=== PATIENT | female | born 1960 | race African-American/Black ===

== ENCOUNTER 2017-06-23 19:51 | Emergency (ER) | payer OTHER ==
[2017-06-23 20:08] VITALS: BP 128/78; PULSE 88; TEMP 98.1; BMI 40.6
[2017-06-23 23:24] LABS: BASOPHIL 1.5 % (0-2.0); EOSINOPHIL 2.5 % (0-4.5); MCH 28.1 pg (25.7-33.7); MCHC 33.8 g/dl (32.0-36.0); MEAN CELL VOLUME 83.3 fl (80-96); MEAN PLT VOLUME 7.7 fl (7.5-11.1); NEUTROPHILS 55.5 % (42.8-82.8); PLATELET COUNT 335 K/MM3 (134-434); RDW 14.7 % (11.6-15.6); WHITE BLOOD COUNT 9.1 K/mm3 (4.0-10.0)
[2017-06-23] MEDS ORDERED: morphine CARPU-JECT 2 MG/1 ML DISP.SYRIN IVPUSH ONE (23:24)
[2017-06-23 23:43] LABS: INR 1.12 (0.82-1.09); PROTHROMBIN TIME (PATIENT) 12.4 SEC (9.98-11.88)
[2017-06-23 23:46] LABS: ACTIVATED PTT 40.9 SECONDS (26.9-34.4)
[2017-06-23 23:49] LABS: ALBUMIN 3.9 g/dl (3.4-5.0); ALK PHOS 83 U/L (45-117); ANION GAP 8 (8-16); BILIRUBIN,TOTAL 0.3 mg/dL (0.2-1.0); CO2 29 mmol/L (21-32); CPK 264 IU/L (26-192); CREATININE 0.8 mg/dL (0.55-1.02); GLUCOSE,RANDOM 97 mg/dL (74-106); SGOT/AST 18 U/L (15-37); SGPT/ALT 22 U/L (12-78); TOT PROT 8.2 g/dl (6.4-8.2); TROPONIN I < 0.02 ng/ml (0.00-0.05)
[2017-06-24] MEDS ORDERED: KETOROLAC TROMETHAMINE 30 MG/1 ML VIAL IVPUSH ONE ×2 (00:39→00:49)
[2017-06-24] MEDS ORDERED: KETOROLAC TROMETHAMINE 30 MG/1 ML VIAL ONE (00:53)
--- NOTE | 2017-06-24 01:03 | PDOC ---
History of Present Illness - General Chief Complaint: Edema Stated Complaint: EDEMA Time Seen by Provider: 06/23/17 22:03 - History of Present Illness Initial Comments: 06/24/17 01:01 CHIEF COMPLAINT: HISTORY OF PRESENT ILLNESS: 57 yo female presents with PMH of osteoarthritis, rheumatoid arthritis, sickle cell trait, anemia, tricuspid regurgitation, and bilateral hip replacements presents with pain and swelling of left foot and ankle x 2 days. Reports that onset was gradual and that pain got worse throughout the day, and that its so bad now that I can hardly put weight on it. PAST MEDICAL HISTORY: osteoarthritis, rheumatoid arthritis, sickle cell trait, anemia, tricuspid regurgitation FAMILY HISTORY: Heart failure and heart valve dysfunction in all the women on my mothers side SURGICAL HISTORY: bilateral hip replacements (right 2000, left 2006) ALLERGIES: No known drug allergies REVIEW OF SYSTEMS General/Constitutional: Denies fever or chills. Denies weakness, weight change. HEENT: Denies change in vision. Denies ear pain or discharge. Denies sore throat. Cardiovascular: Reports frequent shortness of breath with exertion. Denies recent changes in severity/frequency of shortness of breath. Denies chest pain or palpitations. Respiratory: Denies cough, wheezing, or hemoptysis. Gastrointestinal: Denies nausea, vomiting, diarrhea or constipation. Denies rectal bleeding. Genitourinary: Denies dysuria, frequency, or change in urination. Musculoskeletal: Reports pain to left lateral foot and ankle. Reports frequent joint pain because of my arthritis. Denies joint or muscle swelling or pain. Denies neck or back pain. Neurologic: Denies headache, vertigo, loss of consciousness, or loss of sensation. Hematologic/Lymphatic: Reports strong sickle cell trait and chronic anemia. Denies easy bleeding, or history of blood clots. Allergic/Immunologic: Denies hives or skin allergy. Denies latex allergy. PHYSICAL EXAM General Appearance: Well-appearing, appropriately dressed. No apparent distress , no intoxication. Respiratory/Chest: Lungs CTAB. No shortness of breath, chest tenderness, respiratory distress, accessory muscle use. No crackles, rales, rhonchi, stridor , wheezing, dullness Cardiovascular: RRR. S1, S2. No JVD, murmur, bradycardia, tachycardia. Vascular Pulses: Dorsalis-Pedis (R): 2+, Dorsalis-Pedis (L): 2+. Lymphatic: No adenopathy, tenderness. Musculoskeletal/Extremities: Bilateral pretibial 1+ pitting edema. Moderate non -pitting edema of left foot, ankle, and calf. Mild warmth of left heel. Tenderness of lateral and plantar aspects of left foot and ankle. Unable to demonstrate ROM of left foot and ankle due to reported pain. Normal capillary refill. Integumentary: Appropriate color, dry, warm. No cyanosis, erythema, jaundice or rash Neurologic: Fully oriented, alert. Appropriate mood/affect. Motor strength 5/ 5. No appreciable EOM palsy, facial droop or sensory deficit. Past History - Past Medical History Allergies/Adverse Reactions: Allergies Allergy/AdvReac Type Severity Reaction Status Date / Time No Known Allergies Allergy Verified 06/23/17 20:08 Home Medications: Ambulatory Orders Meloxicam [Mobic] 15 mg PO DAILY 06/23/17 Acetaminophen [Tylenol -] 500 mg PO Q6H PRN #100 tablet 06/24/17 GI Disorders: Yes (constipation) - Surgical History Abdominal Surgery: Yes (ovarian cyst) - Suicide/Smoking/Psychosocial Hx Smoking Status: No Smoking History: Never smoked Have you smoked in the past 12 months: No Number of Cigarettes Smoked Daily: 0 Information on smoking cessation initiated: No Hx Alcohol Use: No Drug/Substance Use Hx: No *Physical Exam - Vital Signs Last Vital Signs Temp Pulse Resp BP Pulse Ox 98.1 F 88 18 128/78 98 06/23/17 20:01 06/23/17 20:01 06/23/17 20:01 06/23/17 20:01 06/23/17 20:01 ED Treatment Course - LABORATORY CBC & Chemistry Diagram: 06/23/17 23:15 06/23/17 23:15 - ADDITIONAL ORDERS Additional order review: Laboratory Results 06/23/17 06/23/17 06/23/17 23:22 23:15 23:15 PT with INR INR PTT (Actin FS) Sodium Potassium Chloride Carbon Dioxide Anion Gap BUN Creatinine Creat Clearance w eGFR Random Glucose Lactic Acid 1.2 Calcium Total Bilirubin AST ALT Alkaline Phosphatase Creatine Kinase 264 H Creatine Kinase Index 0.3 CK-MB (CK-2) < 1.000 Troponin I < 0.02 B-Natriuretic Peptide 28.34 Total Protein Albumin 06/23/17 06/23/17 23:15 23:15 PT with INR 12.40 H INR 1.12 PTT (Actin FS) 40.9 H Sodium 140 Potassium 3.8 Chloride 103 Carbon Dioxide 29 Anion Gap 8 BUN 14 Creatinine 0.8 Creat Clearance w eGFR > 60 Random Glucose 97 Lactic Acid Calcium 9.0 Total Bilirubin 0.3 AST 18 ALT 22 Alkaline Phosphatase 83 Creatine Kinase Creatine Kinase Index CK-MB (CK-2) Troponin I B-Natriuretic Peptide Total Protein 8.2 Albumin 3.9 06/23/17 23:15 RBC 4.46 MCV 83.3 MCHC 33.8 RDW 14.7 MPV 7.7 Neutrophils % 55.5 Lymphocytes % 33.6 Monocytes % 6.9 Eosinophils % 2.5 Basophils % 1.5 - RADIOLOGY Radiology Studies Ordered: Category Date Time Status ANKLE & FOOT-LEFT* [RAD] Stat Radiology 06/23/17 22:49 Completed CHEST X-RAY PORTABLE* [RAD] Stat Radiology 06/23/17 22:57 Completed DUPLEX VASCUL US-1 LEG [US] Stat Ultrasound 06/23/17 22:49 Completed - Medications Given in the ED: ED Medications Discontinued Medications Generic Name Dose Route Start Last Admin Trade Name Freq PRN Reason Stop Dose Admin Ketorolac Tromethamine 60 mg 06/24/17 00:39 06/24/17 00:58 Toradol Injection - IVPUSH 06/24/17 00:40 Not Given ONCE ONE Ketorolac Tromethamine 30 mg 06/24/17 00:49 06/24/17 00:58 Toradol Injection - IVPUSH 06/24/17 00:50 30 mg ONCE ONE Administration Morphine Sulfate 2 mg 06/23/17 23:24 06/24/17 00:55 Morphine Injection - IVPUSH 06/23/17 23:25 Not Given ONCE ONE Medical Decision Making - Medical Decision Making 06/24/17 01:02 57 yo female presents with PMH of osteoarthritis, rheumatoid arthritis, sickle cell trait, anemia, tricuspid regurgitation, and bilateral hip replacements presents with pain and swelling of left foot and ankle x 2 days. *DC/Admit/Observation/Transfer Diagnosis at time of Disposition: Other bursal cyst, left ankle and foot - Discharge Dispostion Disposition: HOME Condition at time of disposition: Stable Admit: No - Prescriptions Prescriptions: Acetaminophen [Tylenol -] 500 mg PO Q6H PRN #100 tablet PRN Reason: Pain - Referrals Referrals: Tavares Neal [Primary Care Provider] - Devonte Gilliam MD [Staff Physician] - - Patient Instructions Additional Instructions: Please take medications as prescribed. You must follow up orthopedics by the end of this week for further evaluation of your cyst and your foot. If you develop any shortness of breath, chest pain, palpitations, or any new or worsening symptoms, please return to the ER.
--- NOTE | 2017-06-24 12:53 | EKG ---
Test Reason : Blood Pressure : / mmHG Vent. Rate : 068 BPM Atrial Rate : 068 BPM P-R Int : 158 ms QRS Dur : 082 ms QT Int : 382 ms P-R-T Axes : 050 023 014 degrees QTc Int : 406 ms NORMAL SINUS RHYTHM NORMAL ECG NO PREVIOUS ECGS AVAILABLE Confirmed by ABRAM STEVENS, TAVARES ([id number]) on 06/24/2017 12:53:23 PM Referred By: Confirmed By:TAVARES VALVERDE MD
== END 2017-06-24 02:04 | disposition home or self-care (01) ==
LOC: JER 19:51
PROC: 3E033NZ Introduction of Analgesics, Hypnotics, Sedatives into Peripheral Vein, Percutaneous Approach (ICD-10-PCS; principal; 2017-06-23)
PROC: 3E0333Z Introduction of Anti-inflammatory into Peripheral Vein, Percutaneous Approach (ICD-10-PCS; 2017-06-23)
DX: M71.372 Other bursal cyst, left ankle and foot (principal); M19.90 Unspecified osteoarthritis, unspecified site; M06.9 Rheumatoid arthritis, unspecified; D57.3 Sickle-cell trait; D64.9 Anemia, unspecified; I07.1 Rheumatic tricuspid insufficiency
CPT/HCPCS: 36415; 71010-TC; 73610-TC-LT; 73630-TC-LT; 80053; 82553; 83605; 83880; 84484; 85025; 85610; 85730; 93005; 93010; 93971-TC; 99283-25

== ENCOUNTER 2017-08-23 00:15 | Emergency (ER) | payer OTHER ==
[2017-08-23 01:30] VITALS: BMI 41.0
--- NOTE | 2017-08-23 03:25 | PDOC ---
History of Present Illness - General Chief Complaint: Injury Stated Complaint: FALL Time Seen by Provider: 08/23/17 02:59 History Source: Patient Exam Limitations: No Limitations - History of Present Illness Initial Comments: 08/23/17 03:59 57-year-old female presents to the emergency department complaining of 7/10 dull nonradiating intermittent headache. Patient states she recently had her left rotator cuff repaired and while showering this evening, she slipped and fell. Patient states because she was unable to use her left arm to brace her fall, she struck the right occipital part of her head against the wall. Patient denies any loss of consciousness, dizziness, lightheadedness, facial pain, neck pain, back pains, chest pain, shortness of breath, abdominal pains, flank pains , urinary symptoms, extremity numbness or tingling sensation, bladder or bowel dysfunction. Pt is NOT on blood thinners Occurred: reports: just prior to arrival Past History - Past Medical History Allergies/Adverse Reactions: Allergies Allergy/AdvReac Type Severity Reaction Status Date / Time No Known Allergies Allergy Verified 08/23/17 01:29 Home Medications: Ambulatory Orders Meloxicam [Mobic] 15 mg PO DAILY 06/23/17 Acetaminophen [Tylenol -] 500 mg PO Q6H PRN #100 tablet 06/24/17 Cardiac Disorders: Yes (leaky tricuspis) COPD: No GI Disorders: Yes (constipation) HTN: Yes Other medical history: sickel cell traite - Surgical History Abdominal Surgery: Yes (ovarian cyst) - Suicide/Smoking/Psychosocial Hx Smoking Status: No Smoking History: Never smoked Have you smoked in the past 12 months: No Number of Cigarettes Smoked Daily: 0 Hx Alcohol Use: No Drug/Substance Use Hx: No Review of Systems - Review of Systems Able to Perform ROS?: Yes Comments:: 08/23/17 04:00 CONSTITUTIONAL: Absent: fever, chills, diaphoresis, generalized weakness, malaise, loss of appetite HEENT: Absent: rhinorrhea, nasal congestion, throat pain, throat swelling, difficulty swallowing, mouth swelling, ear pain, eye pain, visual Changes CARDIOVASCULAR: Absent: chest pain, loss of consciousness, palpitations, irregular heart rate, peripheral edema RESPIRATORY: Absent: cough, shortness of breath, dyspnea with exertion, orthopnea, wheezing, stridor, hemoptysis GASTROINTESTINAL: Absent: abdominal pain, abdominal distension, nausea, vomiting, diarrhea, constipation, melena, hematochezia GENITOURINARY: Absent: dysuria, frequency, urgency, hesitancy, hematuria, flank pain, genital pain MUSCULOSKELETAL: Absent: myalgia, arthralgia, joint swelling SKIN: Absent: rash, itching, pallor HEMATOLOGIC/IMMUNOLOGIC: Absent: easy bleeding, easy bruising, lymphadenopathy, frequent infections ENDOCRINE: Absent: unexplained weight gain, unexplained weight loss, heat intolerance, cold intolerance NEUROLOGIC: +WILKERSON Absent: focal weakness or paresthesias, dizziness, unsteady gait, seizure, mental status changes, bladder or bowel incontinence PSYCHIATRIC: Absent: anxiety, depression, suicidal or homicidal ideation, hallucinations. Is the patient limited Tristanian proficient: No *Physical Exam - Vital Signs Last Vital Signs Temp Pulse Resp BP Pulse Ox 98.2 F 67 18 114/73 99 08/23/17 01:26 08/23/17 01:26 08/23/17 01:26 08/23/17 01:08/23/17 01:26 - Physical Exam Comments: 08/23/17 04:00 GENERAL: Well developed, well nourished. Awake and alert. No acute distress. HEENT: Normocephalic, atraumatic. PERRLA, EOMI. No conjunctival pallor. Sclera are non- icteric. Moist mucous membranes. Oropharynx is clear. NECK: Supple. Full ROM. No JVD. Carotid pulses 2+ and symmetric, without bruits. No thyromegaly. No lymphadenopathy. CARDIOVASCULAR: Regular rate and rhythm. No murmurs, rubs, or gallops. Distal pulses are 2+ and symmetric. PULMONARY: No evidence of respiratory distress. Lungs clear to auscultation bilaterally. No wheezing, rales or rhonchi. ABDOMINAL: Soft. Non-tender. Non-distended. No rebound or guarding. No organomegaly. Normoactive bowel sounds. MUSCULOSKELETAL Normal range of motion at all joints. No bony deformities or tenderness. No CVA tenderness. EXTREMITIES: No cyanosis. No clubbing. No edema. No calf tenderness. SKIN: Warm and dry. Normal capillary refill. No rashes. No jaundice. NEUROLOGICAL: Alert, awake, appropriate. Cranial nerves 2-12 intact. No deficits to light touch and temperature in face, upper extremities and lower extremities. No motor deficits in the in face, upper extremities and lower extremities. Normoreflexic in the upper and lower extremities. Normal speech. Toes are down- going bilaterally. Gait is normal without ataxia. PSYCHIATRIC: Cooperative. Good eye contact. Appropriate mood and affect. ED Treatment Course - RADIOLOGY Radiograph Interpretation: 08/23/17 04:00 CT head w/o contrast=neg *DC/Admit/Observation/Transfer Diagnosis at time of Disposition: Closed head injury Qualifiers: Encounter type: initial encounter Qualified Code(s): S09.90XA - Unspecified injury of head, initial encounter - Discharge Dispostion Disposition: HOME Condition at time of disposition: Stable Admit: No - Referrals Referrals: STAFF,NOT ON [Primary Care Provider] - - Patient Instructions Printed Discharge Instructions: DI for Closed Head Injury Additional Instructions: REst Followup with Dr. Hull/Neurosurgery as needed Tylenol as needed for pain Return to the ER for severe/persistent/worsening symptoms - Post Discharge Activity
[2017-08-23 06:48] VITALS: BP 116/59; PULSE 80; TEMP 98.1
== END 2017-08-23 07:46 | disposition home or self-care (01) ==
LOC: JER 00:15
DX: S09.8XXA Other specified injuries of head, initial encounter (principal); W18.2XXA Fall in (into) shower or empty bathtub, initial encounter; Y93.E1 Activity, personal bathing and showering; Y92.012 Bathroom of single-family (private) house as the place of occurrence of the external cause; I10 Essential (primary) hypertension; K59.09 Other constipation; D57.3 Sickle-cell trait
CPT/HCPCS: 70450-TC; 99282-25